=== PATIENT | female | born 1955 | race Caucasian/White ===

== ENCOUNTER 2017-10-11 20:56 | Inpatient (IN) | payer MEDICAID ==
[~2017-10-11] VITALS: Ht 152.4 cm; Wt 67.6 kg
[~2017-10-11 20:56] MED LIST: DULO30CA2 PO
[2017-10-11] MEDS ORDERED: VENL25TA47 PO (22:16)
[2017-10-11 22:31] LABS: LYMPHOCYTES # (AUTO) 4.2 K/uL (1.0-4.8); MONOCYTES # (AUTO) 0.6 K/uL (0.1-1.0); NEUTROPHILS # (AUTO) 6.2 K/uL (1.8-7.7)
[2017-10-11 22:37] LABS: BASOPHILS % (AUTO) 0.9 % (0.0-2.0); EOSINOPHILS % (AUTO) 1.5 % (1.0-6.0); HEMATOCRIT 42.7 % (36-46); HEMOGLOBIN 14.9 g/dL (12.0-16.0); MEAN CORPUSCULAR HEMOGLOBIN 31.6 pg (26.0-34.0); MEAN CORPUSCULAR HGB CONC 34.9 G/dL (31.0-37.0); MEAN CORPUSCULAR VOLUME 91 fL (80-100); MONOCYTES % (AUTO) 5.6 % (2.0-9.0); PLATELET COUNT (AUTO) 299 K/uL (150-450); RED CELL DISTRIBUTION WIDTH 12.6 % (11.5-14.5)
[2017-10-11 22:49] LABS: ANION GAP 7 mmol/L (8-16); CALCIUM, TOTAL 9.3 mg/dL (8.8-10.5); CARBON DIOXIDE 30 mmol/L (22-29); CHLORIDE 104 mmol/L (98-107); CREATININE 0.88 mg/dL (0.60-1.30); GLOMERULAR FILTR. RATE CALC > 60 mL/min (>60); GLUCOSE,RANDOM 122 mg/dL (70-110); SODIUM SERUM 141 mmol/L (136-145); UREA NITROGEN, BLOOD 31 mg/dL (7-18)
[2017-10-11 22:49] LABS: AMPHET/METH SCREEN,URINE NEGATIVE (NEGATIVE); BARBITURATE SCREEN, URINE NEGATIVE (NEGATIVE); BENZODIAZEPINES SCREEN,URINE NEGATIVE (NEGATIVE); CANNABINOID SCREEN,URINE NEGATIVE (NEGATIVE); COCAINE SCREEN,URINE NEGATIVE (NEGATIVE); METHADONE SCREEN, URINE NEGATIVE (NEGATIVE); OPIATE SCREEN,URINE NEGATIVE (NEGATIVE)
[2017-10-11 22:50] LABS: PHENCYCLIDINE SCREEN,URINE NEGATIVE (NEGATIVE)
[2017-10-11 22:54] LABS: ALANINE AMINOTRANSFERASE 34 U/L (12-78); ALBUMIN 3.7 g/dL (3.4-5.0); ALKALINE PHOSPHATASE 88 U/L (46-116); ASPARTATE AMINOTRANSFERASE 19 U/L (15-37); BILIRUBIN,TOTAL 0.2 mg/dL (0.1-1.0); TOTAL PROTEIN, SERUM 7.3 g/dL (6.4-8.2)
[2017-10-12 01:03] VITALS: BP 117/63
[2017-10-12] MEDS: LORazepam 2 MG TABLET PO PRN ×2 (01:06→16:08)
[2017-10-12 01:10] VITALS: BP 117/63
[2017-10-12 08:14] VITALS: BP 117/75
[2017-10-12 08:57] LABS: CHOL/HDL RATIO 4.6 (3.9-5.7)
[2017-10-12] MEDS: VENLAFAXINE HCL 75 MG TABLET PO SCH (12:52)
[2017-10-12 16:00] VITALS: BP 131/77
[2017-10-12] MEDS: HALOPERIDOL 5 MG TABLET PO PRN (16:08)
[2017-10-12] MEDS ORDERED: LOPERAMIDE HCL 2 MG CAPSULE PO PRN (16:45)
[2017-10-12] MEDS ORDERED: ONDANSETRON HCL 4 MG TABLET PO PRN (16:45)
[2017-10-12] MEDS ORDERED: MAG HYDROX/AL HYDROX/SIMETH ES 30 ML SUSPENSION UDCUP PO PRN (16:45)
[2017-10-12] MEDS ORDERED: MAGNESIUM HYDROXIDE SUSPENSION 30 ML UDCUP PO PRN (16:45)
[2017-10-12] MEDS ORDERED: NICOTINE 14 MG/24 HOUR PATCH TD PRN (16:45)
[2017-10-12] MEDS ORDERED: ALBUTEROL SULFATE HFA 90 MCG/PUFF 8 GM INHALER IH PRN (16:45)
[2017-10-12] MEDS ORDERED: ACETAMINOPHEN 325 MG TABLET PO PRN (16:45)
[2017-10-12] MEDS ORDERED: GuaiFENesin/D-METHORPHAN [SUGAR-FREE] 200-20MG/10 ML SYRUP UDCUP PO PRN (16:45)
[2017-10-12] MEDS ORDERED: PETROLATUM,WHITE 71 GM JELLY TP PRN (16:45)
[2017-10-12] MEDS ORDERED: CloNIDine HCL 0.1 MG TABLET PO PRN (16:45)
[2017-10-12] MEDS ORDERED: DOCUSATE SODIUM 100 MG CAPSULE PO PRN (16:45)
[2017-10-12] MEDS: OLANZapine 10 MG TABLET PO SCH (20:24)
[2017-10-13 07:13] VITALS: BP 128/72
[2017-10-13] MEDS: VENLAFAXINE HCL 75 MG TABLET PO SCH (08:16)
[2017-10-13 08:22] VITALS: BP 138/69
[2017-10-13] MEDS: LORazepam 2 MG TABLET PO PRN ×2 (09:35→16:48)
[2017-10-13 16:10] VITALS: BP 108/65
[2017-10-13] MEDS: HALOPERIDOL 5 MG TABLET PO PRN (16:48)
[2017-10-13] MEDS: IBUPROFEN 400 MG TABLET PO PRN (17:55)
[2017-10-13] MEDS: ZOLPIDEM TARTRATE 10 MG TABLET PO PRN (20:28)
[2017-10-13] MEDS: OLANZapine 10 MG TABLET PO SCH (20:28)
[2017-10-14 05:05] VITALS: BP 113/71
[2017-10-14] MEDS: LORazepam 2 MG TABLET PO PRN ×3 (05:11→18:52)
[2017-10-14] MEDS: HALOPERIDOL 5 MG TABLET PO PRN ×2 (07:24→18:52)
[2017-10-14 08:31] VITALS: BP 154/58
[2017-10-14 08:33] VITALS: BP 154/58
[2017-10-14] MEDS: VENLAFAXINE HCL 75 MG TABLET PO SCH (08:54)
[2017-10-14 16:15] VITALS: BP 119/67
[2017-10-14] MEDS: IBUPROFEN 400 MG TABLET PO PRN (20:45)
[2017-10-14] MEDS: OLANZapine 10 MG TABLET PO SCH (20:45)
[2017-10-15 00:09] VITALS: BP 142/55
[2017-10-15 07:59] VITALS: BP 136/67
[2017-10-15 08:00] VITALS: BP 136/67
[2017-10-15] MEDS: VENLAFAXINE HCL 75 MG TABLET PO SCH (08:17)
[2017-10-15] MEDS: LORazepam 2 MG TABLET PO PRN ×2 (08:30→16:38)
[2017-10-15] MEDS: IBUPROFEN 400 MG TABLET PO PRN (08:30)
[2017-10-15] MEDS: HALOPERIDOL 5 MG TABLET PO PRN ×2 (09:30→17:11)
[2017-10-15 16:38] VITALS: BP 118/66
[2017-10-15] MEDS: OLANZapine 10 MG TABLET PO SCH (20:21)
[2017-10-16] VITALS: BP 122/92
[2017-10-16 02:49] VITALS: BP 116/68
[2017-10-16] MEDS: IBUPROFEN 400 MG TABLET PO PRN ×2 (02:51→20:44)
[2017-10-16] MEDS: LORazepam 2 MG TABLET PO PRN ×3 (02:51→15:12)
[2017-10-16 08:23] VITALS: BP 113/61
[2017-10-16] MEDS: VENLAFAXINE HCL 75 MG TABLET PO SCH (10:14)
[2017-10-16 16:21] VITALS: BP 127/84
[2017-10-16] MEDS: HALOPERIDOL 5 MG TABLET PO PRN (18:22)
[2017-10-16] MEDS: OLANZapine 10 MG TABLET PO SCH (20:03)
[2017-10-17 03:54] VITALS: BP 116/79
[2017-10-17] MEDS: IBUPROFEN 400 MG TABLET PO PRN (06:26)
[2017-10-17] MEDS: VENLAFAXINE HCL 75 MG TABLET PO SCH (08:16)
[2017-10-17 08:31] VITALS: BP 120/62
[2017-10-17] MEDS: LORazepam 2 MG TABLET PO PRN ×3 (08:32→23:54)
[2017-10-17] MEDS: HALOPERIDOL 5 MG TABLET PO PRN (13:19)
[2017-10-17 16:22] VITALS: BP 117/70
[2017-10-17] MEDS: ZOLPIDEM TARTRATE 10 MG TABLET PO PRN (20:28)
[2017-10-17] MEDS: OLANZapine 10 MG TABLET PO SCH (20:28)
[2017-10-18 00:09] VITALS: BP 115/70
[2017-10-18] MEDS: VENLAFAXINE HCL 75 MG TABLET PO SCH (08:30)
[2017-10-18] MEDS: LORazepam 2 MG TABLET PO PRN (08:30)
[2017-10-18] MEDS ORDERED: NICOTINE 14 MG/24 HOUR PATCH TD SCH (09:00)
[2017-10-18 10:01] VITALS: BP 112/67
[2017-10-18] MEDS ORDERED: VENL-193 PO (10:22)
[2017-10-18] MEDS ORDERED: OLAN10TA3 PO (10:23)
== END 2017-10-18 12:00 | disposition home or self-care (01) | DRG 750 ==
LOC: EMS 20:57 → B3A 22:30 → B2S 22:48 → UNDOADMIN 22:48 → B3A 10-13 18:00 → B2S 10-15 16:10
PROVIDERS: ADMIT Psychiatry & Neurology Child & Adolescent Psychiatry; ATTEND Psychiatry & Neurology Child & Adolescent Psychiatry
DX: F25.1 Schizoaffective disorder, depressive type (principal); R45.851 Suicidal ideations; Z59.0 Homelessness; E78.5 Hyperlipidemia, unspecified; D72.829 Elevated white blood cell count, unspecified; F17.200 Nicotine dependence, unspecified, uncomplicated; F41.0 Panic disorder [episodic paroxysmal anxiety]; R00.0 Tachycardia, unspecified; B00.9 Herpesviral infection, unspecified; F10.20 Alcohol dependence, uncomplicated; Z71.6 Tobacco abuse counseling; Z90.710 Acquired absence of both cervix and uterus; Z88.0 Allergy status to penicillin; Z88.2 Allergy status to sulfonamides; Z88.8 Allergy status to other drugs, medicaments and biological substances
CPT/HCPCS: 99285; G0480

== ENCOUNTER 2017-12-20 15:19 | Inpatient (IN) | payer MEDICAID ==
[~2017-12-20] VITALS: Ht 152.4 cm; Wt 73.0 kg
[~2017-12-20 15:19] MED LIST changes: +DIVA500T52 PO; -DULO30CA2 PO; +MIRT15 PO; +NALT50TA6 PO; +OLAN20TA2 PO; +OMEG-135 PO; +VENL-67 PO
[2017-12-20 17:43] LABS: BASOPHILS % (AUTO) 0.8 % (0.0-2.0); EOSINOPHILS % (AUTO) 1.9 % (1.0-6.0); HEMATOCRIT 40.2 % (36-46); LYMPHOCYTES # (AUTO) 2.6 K/uL (1.0-4.8); LYMPHOCYTES % (AUTO) 34.6 % (22.0-44.0); MEAN CORPUSCULAR HEMOGLOBIN 31.3 pg (26.0-34.0); MEAN CORPUSCULAR HGB CONC 34.9 G/dL (31.0-37.0); MEAN CORPUSCULAR VOLUME 90 fL (80-100); MONOCYTES # (AUTO) 0.7 K/uL (0.1-1.0); MONOCYTES % (AUTO) 9.4 % (2.0-9.0); NEUTROPHILS # (AUTO) 4.1 K/uL (1.8-7.7); NEUTROPHILS % (AUTO) 53.3 % (40.0-70.0); PLATELET COUNT (AUTO) 298 K/uL (150-450); RED BLOOD CELL COUNT(AUTO) 4.49 MIL/uL (4.00-5.20); RED CELL DISTRIBUTION WIDTH 12.2 % (11.5-14.5)
[2017-12-20 18:07] LABS: ANION GAP 9 mmol/L (8-16); CALCIUM, TOTAL 8.9 mg/dL (8.8-10.5); CARBON DIOXIDE 29 mmol/L (22-29); CHLORIDE 102 mmol/L (98-107); CREATININE 0.59 mg/dL (0.60-1.30); GLOMERULAR FILTR. RATE CALC > 60 mL/min (>60); GLUCOSE,RANDOM 105 mg/dL (70-110); POTASSIUM 3.7 mmol/L (3.5-5.1); SODIUM SERUM 140 mmol/L (136-145); UREA NITROGEN, BLOOD 14 mg/dL (7-18)
[2017-12-20 18:14] LABS: ALANINE AMINOTRANSFERASE 43 U/L (12-78); ALBUMIN 3.8 g/dL (3.4-5.0); ALKALINE PHOSPHATASE 82 U/L (46-116); ASPARTATE AMINOTRANSFERASE 25 U/L (15-37); BILIRUBIN,TOTAL 0.3 mg/dL (0.1-1.0); TOTAL PROTEIN, SERUM 7.6 g/dL (6.4-8.2)
[2017-12-20 18:59] LABS: AMPHET/METH SCREEN,URINE NEGATIVE (NEGATIVE); BARBITURATE SCREEN, URINE NEGATIVE (NEGATIVE); BENZODIAZEPINES SCREEN,URINE NEGATIVE (NEGATIVE); CANNABINOID SCREEN,URINE NEGATIVE (NEGATIVE); COCAINE SCREEN,URINE NEGATIVE (NEGATIVE); METHADONE SCREEN, URINE NEGATIVE (NEGATIVE); OPIATE SCREEN,URINE NEGATIVE (NEGATIVE)
[2017-12-20 19:00] LABS: PHENCYCLIDINE SCREEN,URINE NEGATIVE (NEGATIVE)
[2017-12-20] MEDS ORDERED: LORazepam 2 MG TABLET PO ONE (19:45)
[2017-12-20] MEDS ORDERED: DiphenhydrAMINE HCL 25 MG CAPSULE PO ONE (19:45)
[2017-12-20] MEDS ORDERED: OLAN10TA6 PO (19:46)
[2017-12-20] MEDS: OLANZapine 5 MG RAPDIS TABLET PO SCH (21:15)
[2017-12-20] MEDS: DIVALPROEX SODIUM 500 MG ER TABLET PO SCH (21:15)
[2017-12-21] VITALS: BP 123/80
[2017-12-21] MEDS: ZOLPIDEM TARTRATE 10 MG TABLET PO PRN (00:38)
[2017-12-21] MEDS ORDERED: VENLAFAXINE HCL 75 MG ER CAPSULE PO SCH (09:00)
[2017-12-21] MEDS: LORazepam 2 MG TABLET PO PRN ×3 (09:24→18:41)
[2017-12-21] MEDS: OLANZapine 5 MG RAPDIS TABLET PO PRN (09:24)
[2017-12-21] MEDS: NICOTINE 21 MG/24 HOUR PATCH TD SCH (12:08)
[2017-12-21 12:26] VITALS: BP 139/77
[2017-12-21] MEDS ORDERED: GuaiFENesin/D-METHORPHAN [SUGAR-FREE] 200-20MG/10 ML SYRUP UDCUP PO PRN (12:30)
[2017-12-21] MEDS ORDERED: HydrOXYzine PAMOATE 50 MG CAPSULE PO PRN (12:30)
[2017-12-21] MEDS ORDERED: MAG HYDROX/AL HYDROX/SIMETH ES 30 ML SUSPENSION UDCUP PO PRN (12:30)
[2017-12-21] MEDS ORDERED: LOPERAMIDE HCL 2 MG CAPSULE PO PRN (12:30)
[2017-12-21] MEDS ORDERED: PROMETHAZINE HCL 25 MG TABLET PO PRN (12:30)
[2017-12-21] MEDS ORDERED: MAGNESIUM HYDROXIDE SUSPENSION 30 ML UDCUP PO PRN (12:30)
[2017-12-21] MEDS ORDERED: ACETAMINOPHEN 325 MG TABLET PO PRN (12:30)
[2017-12-21] MEDS: THIAMINE HCL 100 MG TABLET PO SCH (16:30)
[2017-12-21 16:51] VITALS: BP 135/68
[2017-12-21] MEDS ORDERED: BACITRACIN 28.4 GM OINTMENT TP PRN (18:45)
[2017-12-21] MEDS ORDERED: CloNIDine HCL 0.1 MG TABLET PO PRN (18:45)
[2017-12-21] MEDS ORDERED: PETROLATUM,WHITE 71 GM JELLY TP PRN (18:45)
[2017-12-21] MEDS ORDERED: BENZOCAINE/MENTHOL LOZENGE MM PRN (18:45)
[2017-12-21] MEDS ORDERED: ALBUTEROL SULFATE HFA 90 MCG/PUFF 8 GM INHALER IH PRN (18:45)
[2017-12-21] MEDS ORDERED: ONDANSETRON HCL 4 MG TABLET PO PRN (18:45)
[2017-12-21] MEDS ORDERED: IBUPROFEN 600 MG TABLET PO PRN (18:45)
[2017-12-21] MEDS: DIVALPROEX SODIUM 500 MG ER TABLET PO SCH (21:36)
[2017-12-21] MEDS: OLANZapine 5 MG RAPDIS TABLET PO SCH (21:37)
[2017-12-22] MEDS: ZOLPIDEM TARTRATE 10 MG TABLET PO PRN ×2 (01:58→23:55)
[2017-12-22] MEDS: OMEGA-3/DHA/EPA/FISH OIL 1,000 MG CAPSULE PO SCH (08:41)
[2017-12-22] MEDS: NICOTINE 21 MG/24 HOUR PATCH TD SCH (08:44)
[2017-12-22] MEDS: MULTIVITAMINS WITH MINERALS, THERAPEUTIC TABLET PO SCH (08:44)
[2017-12-22] MEDS: LORazepam 2 MG TABLET PO PRN ×2 (08:44→16:12)
[2017-12-22] MEDS: NALTREXONE HCL 50 MG TABLET PO SCH (08:44)
[2017-12-22] MEDS: THIAMINE HCL 100 MG TABLET PO SCH ×2 (08:44→16:11)
[2017-12-22] MEDS: FOLIC ACID 1 MG TABLET PO SCH (08:44)
[2017-12-22] MEDS: FLUoxetine HCL 20 MG CAPSULE PO SCH (08:44)
[2017-12-22] MEDS ORDERED: OMEGA-3/DHA/EPA/FISH OIL 1,000 MG CAPSULE PO SCH (09:00)
[2017-12-22 10:25] VITALS: BP 114/64
[2017-12-22] MEDS: OLANZapine 5 MG RAPDIS TABLET PO PRN (14:46)
[2017-12-22] MEDS ORDERED: DIVALPROEX SODIUM 250 MG ER TABLET PO SCH (21:00)
[2017-12-22] MEDS ORDERED: OLANZapine 10 MG RAPDIS TABLET PO SCH (21:00)
[2017-12-22 21:51] VITALS: BP 114/63
[2017-12-23] VITALS: BP 119/59
[2017-12-23] MEDS: LORazepam 2 MG TABLET PO PRN ×2 (06:58→11:09)
[2017-12-23] MEDS: FLUoxetine HCL 20 MG CAPSULE PO SCH (09:01)
[2017-12-23] MEDS: OMEGA-3/DHA/EPA/FISH OIL 1,000 MG CAPSULE PO SCH (09:01)
[2017-12-23] MEDS: MULTIVITAMINS WITH MINERALS, THERAPEUTIC TABLET PO SCH (09:01)
[2017-12-23] MEDS: NALTREXONE HCL 50 MG TABLET PO SCH (09:01)
[2017-12-23] MEDS: FOLIC ACID 1 MG TABLET PO SCH (09:01)
[2017-12-23] MEDS: THIAMINE HCL 100 MG TABLET PO SCH (09:01)
[2017-12-23] MEDS: NICOTINE 21 MG/24 HOUR PATCH TD SCH (09:02)
[2017-12-23] MEDS ORDERED: FLUO-191 PO (11:26)
[2017-12-23] MEDS ORDERED: DIVA250T45 PO (11:26)
[2017-12-23] MEDS ORDERED: VENL-193 PO (23:55)
[2017-12-23] MEDS ORDERED: MIRT15 PO (23:55)
[2017-12-23] MEDS ORDERED: OMEP20 PO (23:55)
== END 2017-12-23 12:45 | disposition home or self-care (01) | DRG 750 ==
LOC: EMS 15:20 → 3EI 22:11
PROVIDERS: ADMIT Psychiatry & Neurology Psychiatry; ATTEND Psychiatry & Neurology Psychiatry
DX: F25.9 Schizoaffective disorder, unspecified (principal); E83.51 Hypocalcemia; R45.851 Suicidal ideations; E78.5 Hyperlipidemia, unspecified; F41.9 Anxiety disorder, unspecified; F17.210 Nicotine dependence, cigarettes, uncomplicated; K21.9 Gastro-esophageal reflux disease without esophagitis; Z59.0 Homelessness; Z91.14 Patient's other noncompliance with medication regimen; Z88.5 Allergy status to narcotic agent; Z88.0 Allergy status to penicillin; Z88.2 Allergy status to sulfonamides; Z79.899 Other long term (current) drug therapy; Z90.711 Acquired absence of uterus with remaining cervical stump; Z72.89 Other problems related to lifestyle; Z71.6 Tobacco abuse counseling; Z71.41 Alcohol abuse counseling and surveillance of alcoholic
CPT/HCPCS: 87081; G0480

== ENCOUNTER 2017-12-23 15:10 | Emergency (ER) | payer MEDICAID ==
[~2017-12-23] VITALS: Ht 152.4 cm; Wt 68.2 kg
[~2017-12-23 15:10] MED LIST changes: +DIVA250T45 PO; +FLUO-191 PO; +OLAN10TA6 PO; -OLAN20TA2 PO
[2017-12-23 17:23] LABS: BASOPHILS % (AUTO) 0.6 % (0.0-2.0); EOSINOPHILS % (AUTO) 1.2 % (1.0-6.0); HEMATOCRIT 40.2 % (36-46); HEMOGLOBIN 14.2 g/dL (12.0-16.0); LYMPHOCYTES # (AUTO) 2.8 K/uL (1.0-4.8); LYMPHOCYTES % (AUTO) 28.1 % (22.0-44.0); MEAN CORPUSCULAR HEMOGLOBIN 31.6 pg (26.0-34.0); MEAN CORPUSCULAR HGB CONC 35.5 G/dL (31.0-37.0); MEAN CORPUSCULAR VOLUME 89 fL (80-100); MONOCYTES # (AUTO) 0.6 K/uL (0.1-1.0); MONOCYTES % (AUTO) 6.6 % (2.0-9.0); NEUTROPHILS # (AUTO) 6.3 K/uL (1.8-7.7); NEUTROPHILS % (AUTO) 63.5 % (40.0-70.0); PLATELET COUNT (AUTO) 342 K/uL (150-450); RED BLOOD CELL COUNT(AUTO) 4.51 MIL/uL (4.00-5.20); RED CELL DISTRIBUTION WIDTH 12.2 % (11.5-14.5)
[2017-12-23 17:34] LABS: ANION GAP 10 mmol/L (8-16); CALCIUM, TOTAL 9.2 mg/dL (8.8-10.5); CARBON DIOXIDE 29 mmol/L (22-29); CHLORIDE 103 mmol/L (98-107); CREATININE 0.68 mg/dL (0.60-1.30); GLOMERULAR FILTR. RATE CALC > 60 mL/min (>60); GLUCOSE,RANDOM 140 mg/dL (70-110); POTASSIUM 3.8 mmol/L (3.5-5.1); SODIUM SERUM 142 mmol/L (136-145); UREA NITROGEN, BLOOD 12 mg/dL (7-18)
[2017-12-23 17:39] LABS: ALANINE AMINOTRANSFERASE 41 U/L (12-78); ALBUMIN 3.6 g/dL (3.4-5.0); ALKALINE PHOSPHATASE 90 U/L (46-116); ASPARTATE AMINOTRANSFERASE 22 U/L (15-37); BILIRUBIN,TOTAL 0.2 mg/dL (0.1-1.0); TOTAL PROTEIN, SERUM 7.5 g/dL (6.4-8.2)
[2017-12-23 17:53] LABS: VALPROIC ACID 67 mcg/mL (50-100)
[2017-12-23 19:30] VITALS: BP 135/68
[2017-12-23] MEDS ORDERED: LORazepam 1 MG TABLET PO ONE (19:30)
[2017-12-23] MEDS ORDERED: OMEPRAZOLE 20 MG CAPSULE PO ONE (19:30)
[2017-12-23] MEDS ORDERED: VENL-193 PO (23:55)
[2017-12-23] MEDS ORDERED: MIRT15 PO (23:55)
[2017-12-23] MEDS ORDERED: OMEP20 PO (23:55)
== END 2017-12-23 20:01 | disposition home or self-care (01) ==
LOC: EMS 15:12
DX: F41.9 Anxiety disorder, unspecified (principal); F20.9 Schizophrenia, unspecified; F32.9 Major depressive disorder, single episode, unspecified; F17.210 Nicotine dependence, cigarettes, uncomplicated; Z90.49 Acquired absence of other specified parts of digestive tract; Z90.710 Acquired absence of both cervix and uterus; Z88.0 Allergy status to penicillin; Z88.2 Allergy status to sulfonamides; Z88.5 Allergy status to narcotic agent; Z79.899 Other long term (current) drug therapy
CPT/HCPCS: 36415; 80053; 80164; 85025; 99284; G0480

== ENCOUNTER 2017-12-23 23:36 | Emergency (ER) | payer MEDICAID ==
[~2017-12-23] VITALS: Ht 152.4 cm; Wt 68.2 kg
[2017-12-23] MEDS ORDERED: VENL-193 PO (23:55)
[2017-12-23] MEDS ORDERED: OMEP20 PO (23:55)
[2017-12-23] MEDS ORDERED: MIRT15 PO (23:55)
[2017-12-24 00:39] LABS: AMPHET/METH SCREEN,URINE NEGATIVE (NEGATIVE); BARBITURATE SCREEN, URINE NEGATIVE (NEGATIVE); BENZODIAZEPINES SCREEN,URINE NEGATIVE (NEGATIVE); CANNABINOID SCREEN,URINE NEGATIVE (NEGATIVE); COCAINE SCREEN,URINE NEGATIVE (NEGATIVE); METHADONE SCREEN, URINE NEGATIVE (NEGATIVE); OPIATE SCREEN,URINE NEGATIVE (NEGATIVE)
[2017-12-24 00:41] LABS: PHENCYCLIDINE SCREEN,URINE NEGATIVE (NEGATIVE)
[2017-12-24] MEDS ORDERED: LORazepam 1 MG TABLET PO ONE (02:45)
[2017-12-24] MEDS ORDERED: HALOPERIDOL 5 MG TABLET PO ONE (03:45)
[2017-12-24 04:56] VITALS: BP 132/68
== END 2017-12-24 05:02 | disposition home or self-care (01) ==
LOC: EMS 23:37
DX: F25.0 Schizoaffective disorder, bipolar type (principal); F41.9 Anxiety disorder, unspecified; F32.9 Major depressive disorder, single episode, unspecified; F17.210 Nicotine dependence, cigarettes, uncomplicated; Z90.710 Acquired absence of both cervix and uterus; Z88.0 Allergy status to penicillin; Z88.8 Allergy status to other drugs, medicaments and biological substances; Z88.5 Allergy status to narcotic agent; Z79.899 Other long term (current) drug therapy
CPT/HCPCS: 99406